=== PATIENT | male | born 1935 | race Asian ===

== ENCOUNTER 2018-08-25 22:15 | Emergency (ER) | payer OTHER ==
[~2018-08-25] VITALS: Ht 162.6 cm; Wt 61.2 kg
--- NOTE | 2018-08-25 22:25 | NUR ---
PT [facility]RA COMPLAINING OF GENERALIZED WEAKNESS, PER EMS PT MISSED DIALYSIS TODAY. PT AXO3. RESPIRATIONS EVEN AND UNLABORED. COUGH NOTED. PT PUT ON THE UPS DRIVER AND PULSE OX.
--- NOTE | 2018-08-25 22:37 | NUR ---
EKG AT BEDSIDE.
[2018-08-25] MEDS ORDERED: FUROSEMIDE 40 MG/4 ML VIAL ONE (22:40)
--- NOTE | 2018-08-25 22:49 | NUR ---
PATTERN CHAIN BUILDER AT BEDSIDE. LABS DRAWN.
[2018-08-25] MEDS ORDERED: FUROSEMIDE 40 MG/4 ML VIAL IV ONE (23:00)
--- NOTE | 2018-08-25 23:00 | NUR ---
XRAY AT BEDSIDE.
[2018-08-25 23:01] LABS: BASOPHILS # (AUTO) 0.1 /CMM (0.0-0.2); BASOPHILS % (AUTO) 0.8 % (0.0-2.0); EOSINOPHILS % (AUTO) 0.2 % (0.0-6.0); HEMATOCRIT 34 % (39-51); HEMOGLOBIN 10.6 g/dL (13.5-17.5); LYMPHOCYTES # (AUTO) 1.8 /CMM (0.8-4.8); MEAN CORPUSCULAR HGB CONC 31 g/dl (31.0-36.0); MEAN CORPUSCULAR VOLUME 91 fL (80-96); MONOCYTES # (AUTO) 0.9 /CMM (0.1-1.30); MONOCYTES % (AUTO) 7.8 % (2.0-12.0); NEUTROPHILS # (AUTO) 8.9 /CMM (1.8-8.9); NEUTROPHILS % (AUTO) 76.2 % (43.0-81.0); PLATELET COUNT (AUTO) 360 /CMM (150-450); RED BLOOD CELL COUNT(AUTO) 3.71 MIL/uL (4.5-6.0); WHITE BLOOD COUNT (AUTO) 11.7 K/uL (4.3-11.0)
[2018-08-25 23:10] LABS: CALCIUM, SERUM 8.2 mg/dL (8.5-10.1); CARBON DIOXIDE 31 mmol/L (21-32); CHLORIDE 99 mmol/L (98-107); CREATININE 2.7 mg/dL (0.6-1.3); GLUCOSE 125 mg/dL (74-106); SODIUM SERUM 138 mmol/L (136-145); UREA NITROGEN, BLOOD 33 mg/dL (7-18)
[2018-08-25 23:27] LABS: ALANINE AMINOTRANSFERASE 9 U/L (12-78); ALBUMIN 2.4 g/dL (3.4-5.0); ALKALINE PHOSPHATASE 89 U/L (46-116); ASPARTATE AMINOTRANSFERASE 24 U/L (15-37); B-TYPE NATRIURETIC PEPTIDE 11749 PG/ML (0-125); BILIRUBIN,DIRECT 0.2 mg/dL (0.0-0.2); BILIRUBIN,TOTAL 0.5 mg/dL (0.2-1.0); TOTAL PROTEIN, SERUM 6.4 g/dL (6.4-8.2)
[2018-08-25] MEDS ORDERED: ASPIRIN 325 MG TABLET ONE (23:30)
[2018-08-25] MEDS ORDERED: ASPIRIN 325 MG TABLET PO ONE (23:30)
--- NOTE | 2018-08-25 23:36 | NUR ---
CALLED MARJORIE FOR READ.
--- NOTE | 2018-08-26 | NUR ---
PT HYPERTENSIVE ON THE MONITOR. ER MD AWARE. WILL CARRY OUT ORDERS.
[2018-08-26] MEDS ORDERED: NITROGLYCERIN 0.4 MG/TAB BOTTLE ONE (00:10)
[2018-08-26] MEDS ORDERED: NITROGLYCERIN 0.4 MG/TAB BOTTLE SL ONE (00:30)
[2018-08-26] MEDS ORDERED: POTASSIUM CHLORIDE 20 MEQ TAB.PRT.SR PO ONE ×2 (00:30→00:32)
--- NOTE | 2018-08-26 00:36 | NUR ---
[facility] CALLED. PT GOING TO [facility] ER, DR. SANTAMARIA IS ACCEPTING PHYSICIAN. NUMBER FOR REPORT . ALS TRANSPORT SCHEDULED WITH [facility]. [phone] [phone].
--- NOTE | 2018-08-26 01:05 | NUR ---
REPORT GIVEN TO COREY HENSLEY AT [facility] FOR [facility].
[2018-08-26 01:40] VITALS: BP 160/89
== END 2018-08-26 01:54 | disposition short-term general hospital (02) ==
LOC: ER 22:15
DX: I21.4 Non-ST elevation (NSTEMI) myocardial infarction (principal); I50.9 Heart failure, unspecified; E87.6 Hypokalemia; E11.9 Type 2 diabetes mellitus without complications; Z99.2 Dependence on renal dialysis; Z79.82 Long term (current) use of aspirin
CPT/HCPCS: 36415; 71045; 80048; 80076; 83605; 83880; 84484; 85025; 85730; 87040 ×2; 87081; 93005; 96374; 99285; J1940